=== PATIENT | female | born 1965 | race Two or more races ===

== ENCOUNTER 2024-07-08 04:42 | Inpatient (IN) | payer OTHER ==
[2024-07-08] VITALS (8 sets, daily range): BP systolic 109–133; BP diastolic 73–80; PULSE 83–111; RESP 16–20; TEMP 98–98.3; O2SAT 97–100
[~2024-07-08] VITALS: Ht 152.4 cm; Wt 70.6 kg
[2024-07-08] MEDS: IPRATROPIUM BROM 0.5 MG/2.5ML INH SOL NEB ONE (05:20)
[2024-07-08] MEDS: ALBUTEROL SULF 2.5 MG/0.5ML(0.5%) NEB SOLN NEB ONE (05:20)
[2024-07-08 05:35] LABS: Basophils # (auto) 0.1 10 ^3/uL (0-0.2); Basophils % (auto) 1.1 % (0.0-2.0); Eosinophils # (auto) 0.3 10 ^3/uL (0-0.8); Eosinophils % (auto) 3.2 % (0.0-7.0); Hematocrit 39.4 % (36.0-46.0); Hemoglobin 13.5 g/dL (12.2-16.2); Lymphocytes # (auto) 3.3 10 ^3/uL (0.4-5.4); Mean Corpuscular Hemoglobin 32.1 pg (28.0-32.0); Mean Corpuscular Hgb Conc. 34.2 g/dL (32.0-36.0); Mean Corpuscular Volume 93.8 fL (80.0-100.0); Monocytes # (auto) 0.8 10 ^3/uL (0-1.3); Monocytes % (auto) 9.3 % (0.0-12.0); Neutrophils # (auto) 4.2 10 ^3/uL (1.6-8.6); Neutrophils % (auto) 48.4 % (37.0-80.0); Platelet Count (auto) 285 10^3/uL (140-450); Red Cell Distribution Width 15.8 % (11.8-14.3); White Blood Cell 8.7 10^3/uL (4.4-10.8)
[2024-07-08 05:43] LABS: Chloride 109 mmol/L (98-107); Sodium 140 mmol/L (136-145)
[2024-07-08 05:44] LABS: Anion Gap 8 (5-15); Calcium 9.2 mg/dL (8.7-10.4); Carbon Dioxide 23 mmol/L (20-31)
[2024-07-08 05:49] LABS: BUN/Creatinine Ratio 19.7 (10.0-20.0); Blood Urea Nitrogen 14 mg/dL (9-23); Glucose 100 mg/dL (74-106)
[2024-07-08] MEDS ORDERED: DOCUSATE SOD 100 MG CAP PO PRN (10:30)
[2024-07-08] MEDS ORDERED: ALBUTEROL SULF 2.5 MG/0.5ML(0.5%) NEB SOLN NEB SCH (10:30)
[2024-07-08] MEDS ORDERED: IPRATROPIUM BROM 0.5 MG/2.5ML INH SOL NEB SCH (10:30)
[2024-07-08] MEDS ORDERED: ACETAMINOPHEN 325 MG TAB PO PRN (10:30)
[2024-07-08] MEDS: HYDROcodone-ACET 5/325MG TAB PO PRN (10:48)
[2024-07-08] MEDS: methylPREDNISolone SOD SUCC 125 MG/2 ML VL IV SCH (10:48)
[2024-07-08] MEDS: PANTOPRAZOLE 40 MG/10 ML VIAL INJ IV SCH (11:14)
[2024-07-08] MEDS: ALBUTEROL SULF 2.5 MG/0.5ML(0.5%) NEB SOLN NEB SCH (11:25)
[2024-07-08] MEDS: IPRATROPIUM BROM 0.5 MG/2.5ML INH SOL NEB SCH (11:25)
[2024-07-08 12:23] LABS: Urine Bacteria None Seen /hpf (None Seen); Urine WBC None Seen /hpf (0 - 5)
[2024-07-08 13:02] LABS: Urine Blood Negative /uL (Negative); Urine Clarity Clear (Clear); Urine Color Light-Yellow (Yellow); Urine Protein, UAD Negative (Negative); Urine Specific Gravity 1.024 (1.001-1.035); Urine Urobilinogen 3 mg/dL (Negative); Urine pH 6.5 (5.0-9.0)
[2024-07-08] MEDS: SODIUM CHLOR 0.9% PF (SALINE LOCK) 10ML VIAL/SYR IV SCH (14:05)
[2024-07-08] MEDS ORDERED: MELO15TA29 PO (20:21)
[2024-07-08] MEDS ORDERED: SPIR50TA5 PO (20:21)
[2024-07-08] MEDS ORDERED: KETO0.4S EACHEYE (20:21)
[2024-07-08] MEDS ORDERED: FEXO-226 PO (20:21)
[2024-07-09] VITALS (16 sets, daily range): BP systolic 109–117; BP diastolic 63–74; PULSE 83–109; RESP 16–20; TEMP 97.8–98.5; O2SAT 94–100
[2024-07-09 06:08] LABS: Basophils # (auto) 0 10 ^3/uL (0-0.2); Basophils % (auto) 0.1 % (0.0-2.0); Eosinophils # (auto) 0 10 ^3/uL (0-0.8); Hematocrit 38.6 % (36.0-46.0); Lymphocytes # (auto) 1.1 10 ^3/uL (0.4-5.4); Lymphocytes % (auto) 6.7 % (10.0-50.0); Mean Corpuscular Hgb Conc. 33.7 g/dL (32.0-36.0); Mean Corpuscular Volume 94.9 fL (80.0-100.0); Monocytes # (auto) 0.2 10 ^3/uL (0-1.3); Monocytes % (auto) 1.4 % (0.0-12.0); Neutrophils # (auto) 15.1 10 ^3/uL (1.6-8.6); Neutrophils % (auto) 91.8 % (37.0-80.0); Platelet Count (auto) 249 10^3/uL (140-450); Red Blood Cells 4.07 10^6/uL (4.0-5.20); Red Cell Distribution Width 15.5 % (11.8-14.3); White Blood Cell 16.4 10^3/uL (4.4-10.8)
[2024-07-09 06:29] LABS: Alanine Aminotransferase 29 U/L (7-40); Albumin 4.1 g/dL (3.2-4.8); Alkaline Phosphatase 104 U/L (46-116); Anion Gap 6 (5-15); Aspartate Aminotransferase 32 U/L (13-40); BUN/Creatinine Ratio 26.9 (10.0-20.0); Bilirubin, Total 0.4 mg/dL (0.2-1.0); Blood Urea Nitrogen 21 mg/dL (9-23); Calcium 9.5 mg/dL (8.7-10.4); Carbon Dioxide 23 mmol/L (20-31); Chloride 109 mmol/L (98-107); Glucose 130 mg/dL (74-106); Potassium 3.9 mmol/L (3.5-5.1); Sodium 138 mmol/L (136-145); Total Protein 6.6 g/dL (5.7-8.2)
[2024-07-09] MEDS: ENOXAPARIN SOD 40 MG/0.4 ML SYRINGE SC SCH (09:55)
[2024-07-09] MEDS ORDERED: PRED1SUS31 OP (12:30)
[2024-07-09] MEDS ORDERED: MOXI0.5D9 OP (12:30)
[2024-07-09] MEDS ORDERED: CHOL100067 PO (12:30)
[2024-07-09] MEDS ORDERED: BUDE1AER4 IN (12:30)
[2024-07-09] MEDS ORDERED: KETOROLAC TROMETHAMINE OP SCH (18:00)
[2024-07-09] MEDS: MOXIFLOXACIN HYDROCHLORIDE OP SCH (21:44)
[2024-07-09] MEDS: methylPREDNISolone SOD SUCC 125 MG/2 ML VL IV SCH (21:44)
[2024-07-09] MEDS: KETOROLAC TROMETHAMINE 0.5% OP SCH (21:44)
[2024-07-09] MEDS: PREDNISOLONE ACETATE 1% OP SCH (21:45)
[2024-07-10] VITALS (15 sets, daily range): BP systolic 105–128; BP diastolic 62–85; PULSE 76–115; RESP 14–20; TEMP 97.7–98.2; O2SAT 95–100
[2024-07-10] MEDS: HYDROmorphone HCL 2 MG/ML VL/or syr IV PRN (05:59)
[2024-07-10 06:55] LABS: Basophils # (auto) 0 10 ^3/uL (0-0.2); Basophils % (auto) 0.1 % (0.0-2.0); Eosinophils # (auto) 0 10 ^3/uL (0-0.8); Hematocrit 36.9 % (36.0-46.0); Hemoglobin 12.4 g/dL (12.2-16.2); Lymphocytes # (auto) 0.9 10 ^3/uL (0.4-5.4); Lymphocytes % (auto) 5.6 % (10.0-50.0); Mean Corpuscular Hemoglobin 31.9 pg (28.0-32.0); Mean Corpuscular Hgb Conc. 33.6 g/dL (32.0-36.0); Monocytes # (auto) 0.8 10 ^3/uL (0-1.3); Monocytes % (auto) 4.7 % (0.0-12.0); Neutrophils # (auto) 14.7 10 ^3/uL (1.6-8.6); Neutrophils % (auto) 89.6 % (37.0-80.0); Platelet Count (auto) 242 10^3/uL (140-450); Red Blood Cells 3.88 10^6/uL (4.0-5.20); Red Cell Distribution Width 16.1 % (11.8-14.3); White Blood Cell 16.4 10^3/uL (4.4-10.8)
[2024-07-10 07:16] LABS: Alanine Aminotransferase 23 U/L (7-40); Alkaline Phosphatase 87 U/L (46-116); Anion Gap 6 (5-15); BUN/Creatinine Ratio 33.8 (10.0-20.0); Blood Urea Nitrogen 23 mg/dL (9-23); Calcium 9.3 mg/dL (8.7-10.4); Carbon Dioxide 22 mmol/L (20-31); Chloride 111 mmol/L (98-107); Glucose 119 mg/dL (74-106); Sodium 139 mmol/L (136-145)
[2024-07-10 07:17] LABS: Albumin 4.1 g/dL (3.2-4.8)
[2024-07-10 07:18] LABS: Aspartate Aminotransferase 16 U/L (13-40); Bilirubin, Total 0.3 mg/dL (0.2-1.0); Total Protein 6.5 g/dL (5.7-8.2)
[2024-07-10] MEDS: LIDOCAINE 5% TOPICAL PATCH TOP ONE (11:18)
[2024-07-10] MEDS: LACTULOSE 20Gm/30ML SOLN PO SCH (11:19)
[2024-07-10 17:47] LABS: COVID19 ANTIGEN SOFIA FIA NEGATIVE (NEGATIVE)
[2024-07-10 17:56] LABS: Rapid Influenza A Negative (Negative); Rapid Influenza B Negative (Negative)
[2024-07-11] VITALS (13 sets, daily range): BP systolic 107–141; BP diastolic 63–76; PULSE 77–111; RESP 16–20; TEMP 97.7–98.2; O2SAT 94–100
[2024-07-11 07:34] LABS: Basophils # (auto) 0 10 ^3/uL (0-0.2); Basophils % (auto) 0.1 % (0.0-2.0); Eosinophils # (auto) 0 10 ^3/uL (0-0.8); Hematocrit 35.5 % (36.0-46.0); Hemoglobin 12.1 g/dL (12.2-16.2); Lymphocytes # (auto) 1.1 10 ^3/uL (0.4-5.4); Lymphocytes % (auto) 10.2 % (10.0-50.0); Mean Corpuscular Hemoglobin 32.1 pg (28.0-32.0); Mean Corpuscular Hgb Conc. 34.1 g/dL (32.0-36.0); Mean Corpuscular Volume 94.2 fL (80.0-100.0); Monocytes # (auto) 0.7 10 ^3/uL (0-1.3); Monocytes % (auto) 6.7 % (0.0-12.0); Neutrophils # (auto) 8.7 10 ^3/uL (1.6-8.6); Nucleated Red Blood Cells % 0.1 %; Platelet Count (auto) 231 10^3/uL (140-450); Red Blood Cells 3.77 10^6/uL (4.0-5.20); Red Cell Distribution Width 15.9 % (11.8-14.3); White Blood Cell 10.4 10^3/uL (4.4-10.8)
[2024-07-11 07:42] LABS: Alanine Aminotransferase 34 U/L (7-40); Albumin 3.9 g/dL (3.2-4.8); Alkaline Phosphatase 83 U/L (46-116); Anion Gap 6 (5-15); Aspartate Aminotransferase 36 U/L (13-40); BUN/Creatinine Ratio 27.7 (10.0-20.0); Blood Urea Nitrogen 23 mg/dL (9-23); Carbon Dioxide 23 mmol/L (20-31); Chloride 109 mmol/L (98-107); Glucose 144 mg/dL (74-106); Potassium 4.1 mmol/L (3.5-5.1); Sodium 138 mmol/L (136-145)
[2024-07-11 07:43] LABS: Bilirubin, Total 0.3 mg/dL (0.2-1.0); Total Protein 6.1 g/dL (5.7-8.2)
[2024-07-11] MEDS: LIDOCAINE 5% TOPICAL PATCH TOP SCH (09:38)
[2024-07-11] MEDS: ONDANSETRON HCL 4 MG/2 ML VIAL IV PRN (09:38)
[2024-07-12] VITALS (11 sets, daily range): BP systolic 109–137; BP diastolic 69–92; PULSE 76–102; RESP 14–20; TEMP 97.8–98.3; O2SAT 96–100
[2024-07-12 06:56] LABS: Basophils # (auto) 0 10 ^3/uL (0-0.2); Eosinophils # (auto) 0 10 ^3/uL (0-0.8); Hematocrit 38.2 % (36.0-46.0); Hemoglobin 13.1 g/dL (12.2-16.2); Lymphocytes # (auto) 1.4 10 ^3/uL (0.4-5.4); Lymphocytes % (auto) 12.5 % (10.0-50.0); Mean Corpuscular Hemoglobin 32.5 pg (28.0-32.0); Mean Corpuscular Hgb Conc. 34.2 g/dL (32.0-36.0); Mean Corpuscular Volume 95.1 fL (80.0-100.0); Monocytes # (auto) 0.6 10 ^3/uL (0-1.3); Monocytes % (auto) 5.4 % (0.0-12.0); Neutrophils # (auto) 8.9 10 ^3/uL (1.6-8.6); Neutrophils % (auto) 82.1 % (37.0-80.0); Platelet Count (auto) 263 10^3/uL (140-450); Red Blood Cells 4.02 10^6/uL (4.0-5.20); Red Cell Distribution Width 15.6 % (11.8-14.3); White Blood Cell 10.8 10^3/uL (4.4-10.8)
[2024-07-12 07:00] LABS: Alanine Aminotransferase 35 U/L (7-40); Albumin 4.2 g/dL (3.2-4.8); Alkaline Phosphatase 86 U/L (46-116); Anion Gap 4 (5-15); Aspartate Aminotransferase 19 U/L (13-40); BUN/Creatinine Ratio 26.9 (10.0-20.0); Blood Urea Nitrogen 21 mg/dL (9-23); Calcium 9.2 mg/dL (8.7-10.4); Carbon Dioxide 27 mmol/L (20-31); Chloride 106 mmol/L (98-107); Glucose 125 mg/dL (74-106); Potassium 4.4 mmol/L (3.5-5.1); Sodium 137 mmol/L (136-145)
[2024-07-12 07:01] LABS: Bilirubin, Total 0.4 mg/dL (0.2-1.0); Total Protein 6.6 g/dL (5.7-8.2)
[2024-07-12] MEDS ORDERED: METH4PAK PO (12:15)
[2024-07-12] MEDS ORDERED: AZITTAB PO (12:15)
[2024-07-12] MEDS: INFLUENZA TRIVALENT 2024-2025 0.5 ML INJ IM ONE (14:56)
== END 2024-07-12 14:56 | disposition home or self-care (01) | DRG 140 ==
LOC: ER 04:42 → OVERFLOW 10:33 → EAST 17:18
PROVIDERS: ADMIT Internal Medicine; ATTEND Internal Medicine Geriatric Medicine
DX: J44.1 Chronic obstructive pulmonary disease with (acute) exacerbation (principal); J96.01 Acute respiratory failure with hypoxia; J45.909 Unspecified asthma, uncomplicated; K59.00 Constipation, unspecified; R53.1 Weakness; G89.29 Other chronic pain; Z20.822 Contact with and (suspected) exposure to COVID-19
CPT/HCPCS: 36415; 36600; 71046; 73560; 80048; 80053; 81001; 82805; 83880; 84484; 85025; 87426; 87804; 94640; 99291; G0378; J2405; J2470

== ENCOUNTER 2024-09-03 20:22 | Emergency (ER) | payer OTHER ==
[~2024-09-03] VITALS: Ht 152.4 cm; Wt 63.5 kg
[~2024-09-03 20:22] MED LIST: AZITTAB PO; BUDE1AER4 IN; CHOL100067 PO; FEXO-226 PO; KETO0.4S EACHEYE; MELO15TA29 PO; METH4PAK PO; MOXI0.5D9 OP; PRED1SUS31 OP; SPIR50TA5 PO
[2024-09-03] MEDS: KETOROLAC TROMETH 60MG/2ML VIAL IM ONE (23:19)
--- NOTE | 2024-09-04 00:16 | DVH ---
XY L ELBOW 3 VIEW XRAY, INDICATION: elbow injury TECHNICAL DATA: Frontal, oblique and lateral views were obtained of the left elbow. COMPARISON: XY L KNEE 2V XRAY on DOS: 07/09/24 FINDINGS: No fracture is identified. Joint spaces are maintained. Alignment at the joint is anatomic. Soft tiss ues are within normal limits. No joint effusion is demonstrated. IMPRESSION: No acute fracture or dislocation of the left elbow.
--- NOTE | 2024-09-04 00:24 | ED.PDOC ---
Back pain HPI HPI Comments This is a 59-year-old female presents to the ED chief complaint left elbow pain. Patient states around 2 hours prior to main triage arrival she slipped and fell and landed on her left elbow. He is complaining of severe left elbow pain 10/10 on pain scale sharp shooting pain I have radiates down her forearm. She states has not tried anything [id number] and no relief measures. She denies numbness weakness neck pain back pain hit headache LOC. Chief Complaint: Upper Extremity Time Seen by MD: 20:27 Reviewed Notes: Nurses Notes, Medications, Allergies Allergies: Coded Allergies: NO KNOWN ALLERGIES (Unverified , 07/08/24) Home Meds Active Scripts Methylprednisolone (Medrol Dosepak) 4 Mg Italo, 4 MG PO UD, #21 TAB UAD Prov:JESUS GODOY MD 07/12/24 Azithromycin (Zithromax Z-Italo) 250 Mg Tab, 250 MG PO UD, #6 TAB Prov:JESUS GODOY MD 07/12/24 Reported Medications Moxifloxacin Hydrochloride (Moxifloxacin) 0.5 % Alonso, 0.5 % OP, ALONSO 07/09/24 Prednisolone Acetate (Prednisolone Acetate P-F) 1 % Ladan, 1 % OP, ML 07/09/24 Budesonide-Formoterol Fumarate (Budesonide/Formoterol Fum 160-4.5 Mcg/Act) 1 Aer Aer, 1 AER IN, AER 07/09/24 Cholecalciferol (D3) 250 Mcg Cap, 125 MCG PO, CAP 07/09/24 Ketorolac Tromethamine (Ophth) (Acular Ls) 0.4 % Charmaine, 1 DROP EACHEYE QID, #5 ML 2 Refills 07/08/24 Spironolactone (Spironolactone) 50 Mg Tab, 1 TAB PO DAILY, #30 TAB 5 Refills 07/08/24 Meloxicam (Meloxicam) 15 Mg Tab, 15 TAB PO DAILY, #30 TAB 2 Refills 07/08/24 Fexofenadine Hcl (Fexofenadine Hcl) 60 Mg Tab, 180 MG PO BID for 30 Days, MG 07/08/24 Information Source: Patient Mode of Arrival: EMS Past Medical History PAST MEDICAL HISTORY: Asthma Surgical History: Denies all surgeries 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 Family History Family History: Unknown Social History Smoker: Non-Smoker Alcohol: Denies ETOH Use Drugs: Denies Drug Use Lives In: Home Constitutional: denies: chills, diaphoresis, fatigue, fever, malaise, sweats, weakness, others EENTM: denies: blurred vision, double vision, ear bleeding, ear discharge, ear drainage, ear pain, ear ringing, eye pain, eye redness, hearing loss, mouth pain, mouth swelling, nasal discharge, nose bleeding, nose congestion, nose pain, photophobia, tearing, throat pain, throat swelling, voice changes, others Respiratory: denies: cough, hemoptysis, orthopnea, SOB at rest, shortness of breath, SOB with excertion, stridor, wheezing, others Cardiovascular: denies: chest pain, dizzy spells, diaphoresis, Dyspnea on exertion, edema, irregular heart beat, left arm pain, lightheadedness, palpitations, PND, syncope, others Gastrointestinal: denies: abdomen distended, abdominal pain, blood streaked bowels, constipated, diarrhea, dysphagia, difficulty swallowing, hematemesis, melena, nausea, poor appetite, poor fluid intake, rectal bleeding, rectal pain, vomiting, others Genitourinary: denies: abnormal vagina bleeding, burning, dyspareunia, dysuria, flank pain, frequency, hematuria, incontinence, pain, , vagina discharge, urgency, others Neurological: denies: dizziness, fainting, headache, left sided numbness, left sided weakness, numbness, paresthesia, pre-existing deficit, right sided numbness, right sided weakness, seizure, speech problems, tingling, tremors, weakness, others Musculoskeletal: reports: others (Left elbow pain); denies: back pain, gout, joint pain, joint swelling, muscle pain, muscle stiffness, neck pain Integumetry: denies: bruises, change in color, change in hair/nails, dryness, laceration, lesions, lumps, rash, wounds, others Allergic/Immunocompromised: denies: Difficulty Healing, Frequent Infections, Hives, Itching, others Hematologic/Lymphatic: denies: anemia, blood clots, easy bleeding, easy bruising, swollen glands, others Endocrine: denies: excessive hunger, excessive sweating, excessive thirst, excessive urination, flushing, intolerance to cold, intolerance to heat, unexplained weight gain, unexplained weight loss, others Psychiatric: denies: anxiety, bipolar disorder, depression, hopeless, panic disorder, schizophrenia, sleepless, suicidal, others Physical Exam General Appearance: No Apparent Distress, Normal HEENT: Pharynx Normal Neck: Full Range of Motion, Non-Tender Respiratory: Lungs Clear, No Respiratory Distress, Normal Breath Sounds Cardiovascular: No Murmur, Normal Peripheral Pulses, Regular Rate/Rhythm Breast Exam: Deferred Gastrointestinal: Non Tender, Soft Genitalia: Deferred Pelvic: Deferred Rectal: Deferred Extremities: Normal capillary refill, Normal inspection, Normal range of motion, Non-tender, No pedal edema Musculoskeletal : Location: Left Extremity Location: Elbow (Moderate tenderness over lateral epicondyle left elbow no noted ecchymosis, abrasions, lacerations or lesions. Trace edema. No noted crepitus or bony prominence. 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 Was a procedure done?: No (l.) Back Pain Differential Dx Differential Diagnosis: Fracture, Musculoskeletal Pain X-Ray, Labs, Meds, VS Vital Signs Date Time Temp Pulse Resp B/P (MAP) Pulse Ox O2 Delivery O2 Flow Rate FiO2 09/03/24 23:36 100 Room Air 0 09/03/24 20:46 98.0 85 22 145/99 (114) 100 09/03/24 20:31 98 Current Medications Medications (Trade) Dose Ordered Sig/María Route Start Time Stop Time Status Last Admin Ketorolac Tromethamine (Toradol Injection) 60 mg ONCE ONCE IM 09/03/24 23:15 09/03/24 23:16 DC 09/03/24 23:19 X-Ray, Labs, Meds, VS Comment X-ray of left elbow shows no acute fractures, dislocation, or osseous lesions. Likely bone contusion status post fall. Patient placed in sling for comfort. He is to follow up with PCP in 2-3 days for continued symptoms consider further imaging such as MRI. [id number] Tylenol or Motrin as needed for the pain. ER return Time of 1ST Reevaluation: 00:23 Reevaluation 1ST: Improved Patient Education/Counseling: Diagnosis, Treatment, Prognosis, Need For Follow Up Family Education/Counseling: No Family Present Departure 1 Departure Time of Disposition: 00:23 Impression: Primary Impression: Contusion of left elbow Qualified Codes: S50.02XA - Contusion of left elbow, initial encounter Disposition: 01 HOME / SELF CARE / HOMELESS Condition: Stable Discharged With: Self Critical Care Note Critical Care Time?: No Stability Stability form required: LISSETH Nunez Sep 04, 2024 00:24
[2024-09-04 00:35] VITALS: BP 104/80; PULSE 90; RESP 18; TEMP 98; O2SAT 96
[2024-09-04] MEDS: HYDROcodone-ACET 5/325MG TAB PO ONE (00:54)
--- NOTE | 2024-09-04 02:43 | ECG ---
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
== END 2024-09-04 01:00 | disposition home or self-care (01) ==
LOC: ER 20:22 → EDUNIT# 20:22 → EDBD 20:22 → ER 09-04 01:00
DX: S50.02XA Contusion of left elbow, initial encounter (principal); J45.909 Unspecified asthma, uncomplicated; Z79.1 Long term (current) use of non-steroidal anti-inflammatories (NSAID); Z79.899 Other long term (current) drug therapy; W18.09XA Striking against other object with subsequent fall, initial encounter; Y93.89 Activity, other specified; Y92.89 Other specified places as the place of occurrence of the external cause; Y99.8 Other external cause status
CPT/HCPCS: 73080; 93005; 96372; 99283; J1885

== ENCOUNTER 2024-09-06 17:11 | Emergency (ER) | payer OTHER ==
[~2024-09-06] VITALS: Ht 152.4 cm; Wt 62.7 kg
[2024-09-06 19:42] VITALS: BP 125/89; PULSE 117; RESP 15; TEMP 98.4; O2SAT 96
[2024-09-06] MEDS ORDERED: ACET500T58 PO (19:42)
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
[2024-09-06] MEDS: KETOROLAC TROMETH 60MG/2ML VIAL IM ONE (19:54)
== END 2024-09-06 20:01 | disposition home or self-care (01) ==
LOC: ER 17:11
DX: S50.02XA Contusion of left elbow, initial encounter (principal); F41.9 Anxiety disorder, unspecified; J44.89 Other specified chronic obstructive pulmonary disease; J44.9 Chronic obstructive pulmonary disease, unspecified; N18.9 Chronic kidney disease, unspecified; Z98.84 Bariatric surgery status; Z79.899 Other long term (current) drug therapy; W01.0XXA Fall on same level from slipping, tripping and stumbling without subsequent striking against object, initial encounter; Y93.89 Activity, other specified; Y92.89 Other specified places as the place of occurrence of the external cause; Y99.8 Other external cause status